=== PATIENT | female | born 1990 | race Caucasian/White ===

== ENCOUNTER 2022-06-24 15:48 | Emergency (ER) | payer SELFPAY ==
[2022-06-24 15:53] VITALS: BP 136/89; PULSE 89; RESP 14; TEMP 36.5; O2SAT 99
[2022-06-24 16:10] VITALS: BP 152/97; PULSE 77; RESP 17; O2SAT 96
--- NOTE | 2022-06-24 16:21 | CTR_ITS ---
PROCEDURE INFORMATION: Exam: CT Head Without Contrast Exam date and time: 06/24/2022 4:45 PM Age: 31 years old Clinical indication: Dizziness; Additional info: Dizzy, memory problems, visual changes TECHNIQUE: Imaging protocol: Computed tomography of the head without contrast. Radiation optimization: All CT scans at this facility use at least one of these dose optimization techniques: automated exposure control; mA and/or kV adjustment per patient size (includes targeted exams where dose is matched to clinical indication); or iterative reconstruction. COMPARISON: No relevant prior studies available. RADIATION DOSE METRICS: Total DLP (mGy-cm): 1027.98 FINDINGS: Brain: No focal hemorrhage or midline shift is identified. Cerebral ventricles: No ventriculomegaly or evidence of acute hydrocephalus. Paranasal sinuses: The partially assessed sinuses are grossly clear. Mastoid air cells: Visualized mastoid air cells are well aerated. Bones/joints: No displaced skull fracture is noted. Soft tissues: Unremarkable. CT/CT head wo con* [id number] IMPRESSION: No acute intracranial abnormality.
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
[2022-06-24 17:58] VITALS: BP 102/65; PULSE 77; RESP 16; O2SAT 100
--- NOTE | 2022-06-26 10:30 | DCPLANNER ---
internet project manager had message to speak with patient about getting established with a primary care physician. internet project manager called phone number [phone], phone is not accepting calls at this time.
== END 2022-06-24 17:59 | disposition home or self-care (01) ==
PROVIDERS: Emergency Provider Physician Assistant
DX: S06.9X9A Unspecified intracranial injury with loss of consciousness of unspecified duration, initial encounter (principal); Y04.2XXA Assault by strike against or bumped into by another person, initial encounter
CPT/HCPCS: 70450; 99284

== ENCOUNTER → 2022-08-30 16:15 | Outpatient (BNVA) | payer SELFPAY | PROVIDERS: Visit Provider Family Medicine | DX: F33.1 Major depressive disorder, recurrent, moderate (principal); F41.9 Anxiety disorder, unspecified; F90.9 Attention-deficit hyperactivity disorder, unspecified type; F43.10 Post-traumatic stress disorder, unspecified; F41.0 Panic disorder [episodic paroxysmal anxiety]; M79.7 Fibromyalgia; M19.90 Unspecified osteoarthritis, unspecified site; R30.0 Dysuria | CPT/HCPCS: 81000 ==

== ENCOUNTER → 2022-11-14 09:40 | Outpatient (BNVA) | payer OTHER, SELFPAY | PROVIDERS: PCP Family Medicine; Visit Provider Psychiatry & Neurology Psychiatry | DX: F33.1 Major depressive disorder, recurrent, moderate (principal); F41.9 Anxiety disorder, unspecified; F90.9 Attention-deficit hyperactivity disorder, unspecified type; F43.10 Post-traumatic stress disorder, unspecified; Z65.3 Problems related to other legal circumstances; Z79.899 Other long term (current) drug therapy | CPT/HCPCS: 80053; 80061; 83036; 84443; 85025 ==

== ENCOUNTER → 2022-11-25 10:19 | Outpatient (BNVA) | payer SELFPAY | PROVIDERS: PCP Family Medicine; Visit Provider Internal Medicine Rheumatology | DX: Z79.899 Other long term (current) drug therapy (principal); M19.90 Unspecified osteoarthritis, unspecified site | CPT/HCPCS: 36415; 73130; 73630; 82306; 84439; 84443; 85651; 86038; 86140; 86200; 86431; 86480; 86704; 86803; 87340 ==

== ENCOUNTER → 2023-08-26 12:43 | Outpatient (BNVA) | payer SELFPAY | PROVIDERS: PCP Family Medicine; Visit Provider Registered Nurse Neonatal Intensive Care | DX: R05.9 Cough, unspecified (principal) | CPT/HCPCS: 87400; 87426 ==

== ENCOUNTER 2024-05-03 10:00 | Emergency (ER) | payer SELFPAY ==
[2024-05-03 10:17] VITALS: BP 137/99; PULSE 65; RESP 18; TEMP 36.7; O2SAT 98; BMI 31.1
[2024-05-03 11:46] LABS: Basophils % 0.4 %; Eosinophils # 0.5 10^3/uL (0.0-0.8); Eosinophils % 7.5 %; Hematocrit 45.4 % (36-47); Lymphocytes # 0.9 10^3/uL (0.8-4.8); Lymphocytes % 13.3 %; Mean Corpuscular HGB Conc 33.5 g/dL (30-55); Mean Corpuscular Hemoglobin 33.9 pg (27-33); Mean Corpuscular Volume 101.3 fl (85-98); Mean Platelet Volume 10.8 fL (7.4-10.4); Monocytes # 0.6 10^3/uL (0.2-0.9); Monocytes % 9.4 %; Neutrophils # 4.72 10^3/uL (1.8-7.7); Neutrophils % 69.1 %; Nucleated Red Blood Cells % 0 %; Platelet Count 305 10^3/cmm (157-399); Red Blood Count 4.48 10^6/uL (3.85-5.65); Red Cell Distribution Width 11.7 % (12.1-15.1); White Blood Count 6.83 10^3/uL (3.29-11.43)
[2024-05-03 12:03] LABS: HCG, Serum Qual Negative (Negative)
[2024-05-03 12:07] LABS: Alanine Aminotransferase 179 U/L (0-33); Albumin Level 4.6 g/dL (3.5-5.2); Alkaline Phosphatase 56 U/L (35-105); Anion Gap 16.3 (5-19); Aspartate Amino Transferase 140 U/L (0-32); Blood Urea Nitrogen 10 mg/dL (6-20); Calcium 8.8 mg/dL (8.5-10.5); Carbon Dioxide 23 mmol/L (22-29); Chloride 100 mmol/L (98-107); Creatinine Clr Calc Pharmacy 125.2407; Glomerular Filtration Rate 97.6 mL/min (90-130); Glucose 92 mg/dL (65-115); Osmolality Calculated 279 mOsm/kg (285-295); Potassium 4.3 mmol/L (3.5-5.1); Sodium 135 mmol/L (136-145); Total Bilirubin 1.1 mg/dL (0.15-1.2); Total Protein 7.6 g/dL (6.6-8.7)
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
[2024-05-03 13:37] LABS: Bilirubin Urine Negative (Negative); Blood Urine Negative (Negative); Glucose Urine UA Negative (Normal); Ketones Urine 4+ (Negative); Leukocyte Esterase Urine Trace (Negative); Nitrate Urine Negative (Negative); Protein Urine Trace (Negative); Specific Gravity, Urine 1.028 (1.005-1.030); Urine Appearance Clear (CLEAR); pH Urine 7.5 (5-7)
[2024-05-03 13:52] LABS: Urine Color Orange (Yellow)
[2024-05-03 13:54] LABS: Add Urine Microscopic? YES; Bacteria Urine 1+ /hpf; Mucus Urine 1+ /hpf; Squamous Epithelial Cell Urine 0-4 /hpf (0-5); UA Manual Slide Review YES; WBC Urine 0-4 /hpf (0-5)
[2024-05-03 13:55] LABS: Add Urine Culture? No
[2024-05-03 13:56] VITALS: BP 112/82; PULSE 80; RESP 16; O2SAT 97
[2024-05-03] MEDS: ondansetron 2 mg/ML SDV 2 mL 4 MG IM (13:56)
--- NOTE | 2024-05-03 14:09 | CT_ITS ---
WS: [id number] CT ABDOMEN AND PELVIS NONCONTRAST HISTORY: back pain, RLQ ab/pelvis pain, N/V TECHNIQUE: Imaging performed through the abdomen and pelvis. Coronal and sagittal reformats are submi tted. All CT scans at [facility] use at least one of these dose optimization techniques: auto mated exposure control; mA and/or kV adjustment per patient size (includes targeted exams where dose is matched to clinical indication); or iterative reconstruction. DLP: 670.23 mGy.cm COMPARISON: 07/30/2018 Lower thorax: Lung bases are clear. Visualized heart is normal. No hiatal hernia. Liver: Marked low-attenuation from the liver from hepatic steatosis. No bile duct dilatation. Gallbladder: Prior cholecystectomy. Pancreas: Normal size and attenuation. Normal pancreatic duct. No pancreatitis or mass. Spleen: Normal. Adrenal glands: Normal. No mass. Right kidney: Normal size kidney with no mass or hydronephrosis. Left kidney: Normal size kidney with no mass or hydronephrosis. Aorta: Normal abdominal aorta, no aneurysm or atherosclerosis. No free fluid, intraperitoneal air or significant lymphadenopathy. GI tract: Normal noncontrast imaging of the stomach, small bowel and colon. No obstruction or wall th ickening. Normal appendix. Abdominal wall: Negative. No hernia. Pelvis: No free fluid. Uterus is midline. Both ovaries are identified and normal size. Osseous structures: Unremarkable. CT/CT kidney stone [id number] IMPRESSION: 1. Normal appendix. 2. No renal obstruction or calcifications. 3. No perinephric stranding. 4. No free fluid. 5. Severe diffuse hepatic steatosis. 6. Prior cholecystectomy.
[2024-05-03] MEDS: promethazine 25 mg/mL SDV 1 mL IM (14:35)
[2024-05-03 15:10] VITALS: BP 133/82; PULSE 67; RESP 16; O2SAT 98
== END 2024-05-03 15:11 | disposition home or self-care (01) ==
PROVIDERS: Emergency Provider Physician Assistant; PCP Family Medicine
DX: K76.0 Fatty (change of) liver, not elsewhere classified (principal); R30.0 Dysuria
CPT/HCPCS: 36415; 74176; 80053; 81001; 84703; 85025; 87086; 96372; 99284; J2405; J2550

== ENCOUNTER 2024-08-16 00:37 | Emergency (ER) | payer MEDICAID, SELFPAY ==
[2024-08-16 00:42] VITALS: BP 119/69; PULSE 100; RESP 16; TEMP 36.7; O2SAT 97; BMI 31.1
--- NOTE | 2024-08-16 04:03 | XRR_ITS ---
PROCEDURE INFORMATION: Exam: XR Right Forearm Exam date and time: 08/16/2024 4:26 AM Age: 34 years old Clinical indication: Injury or trauma; Arm, lower; Right; Patient sustained puncture wound to lateral and medial side of proximal forearm from dog bite. ; Additional info: Animal bite TECHNIQUE: Imaging protocol: Radiologic exam of the right forearm. Views: 2 views. COMPARISON: No relevant prior studies available. FINDINGS: Bones/joints: Normal. Soft tissues: Posterior subcutaneous fat reticulation and thickening with a few locules of subcutaneous emphysema. No radiopaque retained foreign bodies. XR/XR forearm RT 2V [id number] IMPRESSION: Findings compatible with puncture wound at the posterior aspect of the forearm. No retained foreign body.
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
[2024-08-16] MEDS: rabies vaccine 2.5 unit SDV IM (04:21)
[2024-08-16] MEDS: rabies IG 300 unit/mL SDV 1 mL 1710 UNIT IM (04:29)
[2024-08-16 04:31] VITALS: RESP 16; O2SAT 98
[2024-08-16] MEDS: amoxicillin-clav 875-125 mg Tablet 1 TAB PO (04:31)
[2024-08-16] MEDS: oxyCODONE-APAP 5-325 mg Tablet 2 TAB PO (04:31)
[2024-08-16 04:49] VITALS: BP 122/73; PULSE 107; RESP 18; O2SAT 98
[2024-08-16 05:39] VITALS: BP 137/78; PULSE 78; O2SAT 98
== END 2024-08-16 05:59 | disposition home or self-care (01) ==
PROVIDERS: Emergency Provider Emergency Medicine; PCP Family Medicine
DX: S51.811A Laceration without foreign body of right forearm, initial encounter (principal); Z20.3 Contact with and (suspected) exposure to rabies; Z29.14 Encounter for prophylactic rabies immune globulin; W54.0XXA Bitten by dog, initial encounter; F17.290 Nicotine dependence, other tobacco product, uncomplicated
CPT/HCPCS: 73090; 90375; 90471; 90675; 96372; 99283